=== PATIENT | male | born 1990 | race African-American/Black ===

== ENCOUNTER → 2016-04-03 | Outpatient (REF) | payer OTHER ==
[2016-04-03 11:34] LABS: NON PROGRESSIVE MOTILITY (c) 12 %; PROGRESSIVE MOTILITY (a) 49 % (>=32); TOTAL MOTILITY 61 % (>=40)
[2016-04-03 11:35] LABS: % NORMAL FORMS 16 % (>=4); IMMOTILITY 39 %; SPERM# 163.1 M/Ejac (33-46); TOTAL FUNCTIONAL 26.3 M/Ejac.; TOTAL PROGRESSIVE SPERM 80.6 M/Ejac.
== END ==
LOC: M LAB REF 11:23
PROVIDERS: ATTEND Physician Assistant
DX: N46.9 Male infertility, unspecified (principal)

== ENCOUNTER 2016-10-27 17:44 | Emergency (ER) | payer OTHER ==
[~2016-10-27] VITALS: Ht 157.5 cm; Wt 106.8 kg
[2016-10-27] MEDS ORDERED: VITA-122 PO (18:01)
[2016-10-27] MEDS ORDERED: NAPR500T3 PO (18:01)
--- NOTE | 2016-10-27 18:42 | REP ---
REASON: Pain after trauma. PRIORS: None. There is a tiny chip fracture seen arising from the very tip of the medial malleolus. The examination is otherwise unremarkable with the exception of soft-tissue swelling. IMPRESSION: Tiny distal medial malleolar chip fracture. Signed by Ottoniel Greenberg DO 10/27/2016 07:52 P
[2016-10-27] MEDS ORDERED: ULTR50TA8 PO (19:11)
[2016-10-27 19:16] VITALS: BP 132/82
== END 2016-10-27 19:22 | disposition home or self-care (01) ==
LOC: M ED 17:44
DX: S82.55XA Nondisplaced fracture of medial malleolus of left tibia, initial encounter for closed fracture (principal); X50.9XXA Other and unspecified overexertion or strenuous movements or postures, initial encounter; Y92.89 Other specified places as the place of occurrence of the external cause; Y93.67 Activity, basketball; Y99.1 Military activity